=== PATIENT | female | born 1980 | race Caucasian/White ===

== ENCOUNTER 2016-06-29 05:16 | Emergency (ER) | payer OTHER ==
--- NOTE | ~2016-06-29 | CT2 ---
[facility] A Service of [facility] RADIOLOGY TEXT RESULTS PATIENT: JOSE MANUEL MAR LOCATION: [facility] : [birth year] UNIT #: [id number] AGE: [address]: Abe Moore MD SEX: F ORDER DR: [id number] [facility] [address] [place], [place] [address] [id number] MR#: [id number] Acc #: [id number] NAME: JOSE MANUEL MAR : 1980 SEX: F STUDY DATE/TIME: 06/29/2016 7:30 UNIT: [facility] ROOM: STUDY DESCRIPTION: CT Abd and Pelv W Cont Attending Physician: Abe Moore M.D. Ordering Physician: Heavenly Felton A.P.R.N. Primary Care Physician: Magui Abel Aprn MEDICAL IMAGING REPORT This report is preliminary unless electronic signature is present EXAM CT of the abdomen and pelvis with IV contrast 06/29/2016 COMPARISON 08/29/2011 HISTORY Intermittent left-sided pain for 1 month. TECHNIQUE Transaxial imaging of the abdomen and pelvis was performed with IV contrast media. This CT exam was performed with one or more of the following radiation dose reduction techniques: Automatic exposure control, adjustment of mA and/or kV according to patient size, and iterative reconstruction. FINDINGS Scans through the lung bases are unremarkable. There is hepatomegaly with diffuse hepatic steatosis. The gallbladder is absent. The spleen is not enlarged. Adrenal glands, pancreas and kidneys are normal. No dilated or thickened loops of bowel are seen. There is diverticulosis present without diverticulitis. Uterus is midline. Small follicular cysts are seen within the ovary. No adnexal masses or fluid collections are identified. Patient has degenerative disc disease throughout the lumbar spine. CONCLUSION 1. Hepatic steatosis with hepatomegaly. 2. Postop changes of prior cholecystectomy. 3. Diverticulosis without diverticulitis. 4. Multilevel degenerative disc disease. [facility] A Service of [facility] RADIOLOGY TEXT RESULTS PATIENT: JOSE MANUEL MAR LOCATION: [facility] : 78 UNIT #: [id number] AGE: [address]: Abe Moore MD SEX: F ORDER DR: Dictated by... Stephane Messina M.D. THIS IS AN ELECTRONICALLY VERIFIED REPORT Stephane Messina M.D. at 06/30/2016 3:10 PM ANNELIESE/kia TD: 06/29/2016 13:42 JOB #: [id number] MEDICAL IMAGING REPORT Page 1 of 1 COPY
[~2016-06-29 05:16] MED LIST: ACETAMINOPHEN650 M1 PO; ACETAZOLAMIDE500 M1 PO; ALBUTEROL17 GM INH; AMOXICILLIN500 M1 PO; BENZONATATE PO; DOXYCYCLIN25 MG/5 ML PO; FUROSEMIDE40 MG PO; HYDROCODONE/APA1 T15 PO; IBUPROFEN800 MG PO; LISINOPRIL-HCTZ1 T19 PO; LORTAB 5/500 TA1 TA1 PO; LORTAB ELIXIR15 ML DOB; MEDROL4 MG/DOSE- PO; MIDRIN CAPSULE1 CAP PO; MOTRIN400 MG PO; PHENERGAN PO; PHENERGAN PR; PREDNISONE PO; PREDNISONE1 MG PO; PROPRANOLOL HCL80 M1 PO; TOPAMAX PO; TYLOX 5/500 CAP1 CAP PO; VICODIN 5/1 TAB 5/50 PO; VOLTAREN50 MG PO
[2016-06-29 06:13] LABS: URINE SOURCE CLEAN CATCH
[2016-06-29 06:18] LABS: BASOPHIL# 0.1 X10e3 (0-0.3); BASOPHIL% 0.5 % (0-2.5); EOSINOPHIL# 0.4 X10e3 (0-0.7); EOSINOPHIL% 3.1 % (0.0-7.0); HEMATOCRIT 40.2 % (35.0-45.0); HEMOGLOBIN 13.2 gm/dL (12.0-16.0); LYMPHOCYTE# 3.9 X10e3 (1.0-3.5); LYMPHOCYTE% 31.4 % (17.0-45.0); MEAN CELL VOLUME 91.9 FL (83-96); MEAN CORPUSCULAR HEMOGLOBIN 30.2 PG (28-34); MEAN CORPUSCULAR HGB CONC 32.9 g/dL (30-36); MEAN PLATELET VOLUME 10.3 FL (6.5-11.5); MONOCYTE# 0.9 X10e3 (0-1.0); MONOCYTE% 7.2 % (3.0-12.0); NEUTROPHIL# 7.2 X10e3 (1.5-7.1); NEUTROPHIL% 57.8 % (40-75); PLATELET COUNT 244 X10e3 (140-420); RED BLOOD COUNT 4.37 X10e (3.90-5.30); RED CELL DISTRIBUTION WIDTH 14.1 % (11.0-15.5); WHITE BLOOD COUNT 12.4 X10e3 (4.0-10.5)
[2016-06-29 06:20] LABS: URINE APPEARANCE CLEAR; URINE BILIRUBIN NEG (NEG); URINE BLOOD 1+ (NEG); URINE COLOR YELLOW; URINE GLUCOSE NEG (NEG); URINE KETONE NEG (NEG); URINE LEUKOCYTE ESTERASE NEG (NEG); URINE NITRATE NEG (NEG); URINE PH 5.5 (5-8); URINE PROTEIN NEG (NEG); URINE SPECIFIC GRAVITY 1.031 (1.003-1.035)
[2016-06-29 06:20] LABS: DIFF IND NO
[2016-06-29 06:23] LABS: URBCS1 AUWI 0-2 /[HPF] (0-2); URINE BACTERIA AUWI NEG (NEGATIVE); URINE SQUAMOUS EPITHELIAL CELL OCC /[HPF]; UWBCS1 AUWI 0-2 (0-5)
[2016-06-29 06:27] LABS: CULTURE INDICATED? NO
[2016-06-29 06:30] LABS: AMPHETAMINE NEG (NEG); BARBITURATES NEG (NEG); BENZODIAZEPINES NEG (NEG); COCAINE NEG (NEG); MARIJUANA NEG (NEG); OPIATES NEG (NEG); TRICYCLIC ANTIDEPRESSANTS NEG (NEG); U METHADONE NEG (NEG)
[2016-06-29 06:59] LABS: ALBUMIN SERUM 3.9 g/dL (3.5-5.0); ALKALINE PHOSPHATASE 52 U/L (32-92); ALT (SGPT) 23 U/L (10-40); AMYLASE 13 U/L (0-46); AST (SGOT) 21 U/L (10-42); BILIRUBIN, DIRECT 0.1 mg/dL (0.0-0.2); BILIRUBIN,INDIRECT 0.5 mg/dL (0.0-0.9); BILIRUBIN,TOTAL 0.6 mg/dL (0.2-2.0); BLOOD UREA NITROGEN 14 mg/dL (9-23); BUN/CREATININE RATIO 23.33; CALCIUM SERUM 8.8 mg/dL (8.4-10.2); CARBON DIOXIDE 25 mmol/L (22-31); CHLORIDE 101 mmol/L (100-111); CREATININE SERUM 0.6 mg/dL (0.6-1.4); GLOM FILT RATE Estimated ABOVE60 mL/min (>60); GLUCOSE FASTING 142 mg/dL (70-110); LIPASE 16 U/L (22-51); POTASSIUM 3.5 mmol/L (3.5-5.1); PROTEIN TOTAL SERUM 7.2 g/dL (6.0-8.3); SODIUM 138 mmol/L (135-145)
[2017-01-03] MEDS ORDERED: PATIENT'S PHARMACY (12:17)
[2017-01-03] MEDS ORDERED: METFORMIN PO (12:18)
[2017-01-03] MEDS ORDERED: ALBUTEROL17 GM INH (12:18)
[2017-01-03] MEDS ORDERED: GABAPENTIN400 M2 PO (12:18)
[2017-01-03] MEDS ORDERED: PRENATAL 19 TA1 EACH PO (12:18)
[2017-01-03] MEDS ORDERED: PROTONIX PO (12:18)
[2017-01-03] MEDS ORDERED: PROVENTIL INH0.5 ML NEB (12:18)
[2017-01-03] MEDS ORDERED: LOSARTAN-HCTZ1 EAC1 PO (12:18)
[2017-01-03] MEDS ORDERED: ACETAMINOPHEN PO (12:19)
== END 2016-06-29 09:39 | disposition home or self-care (01) ==
LOC: CED 05:16
PROVIDERS: Nurse Practitioner
DX: R10.12 Left upper quadrant pain (principal); E11.9 Type 2 diabetes mellitus without complications; E78.5 Hyperlipidemia, unspecified; I10 Essential (primary) hypertension; F17.200 Nicotine dependence, unspecified, uncomplicated; Z88.8 Allergy status to other drugs, medicaments and biological substances; Z88.1 Allergy status to other antibiotic agents; Z88.5 Allergy status to narcotic agent
CPT/HCPCS: 36415; 74177; 80048; 80076; 80307; 81003; 82150; 83690; 84703; 85025; 96361; 96374; 96375; 99284; J1885; J2405; Q9967

== ENCOUNTER 2016-07-18 22:21 | Emergency (ER) | payer OTHER ==
--- NOTE | ~2016-07-18 | CR181 ---
[facility] A Service of [facility] RADIOLOGY TEXT RESULTS PATIENT: JOSE MANUEL MUIR LOCATION: [facility] : [birth year] UNIT #: [id number] AGE: [address]: Heavenly Felton APRN SEX: F ORDER DR: [id number] [facility] [address] [place], [place] [address] [id number] E MR#: [id number] Acc #: [id number] NAME: JOSE MANUEL MUIR : 1980 SEX: F STUDY DATE/TIME: 07/18/2016 UNIT: [facility] ROOM: STUDY DESCRIPTION: CR Lumbar Spine 2 or 3 Views Attending Physician: Heavenly Felton A.P.R.N. Ordering Physician: Heavenly Felton A.P.R.N. Primary Care Physician: Magui Abel Aprn MEDICAL IMAGING REPORT This report is preliminary unless electronic signature is present EXAM Lumbar spine 07/18 at 22:53 INDICATIONS Low back pain after fall on stairs this evening. FINDINGS 3 views of the lumbar spine were obtained. There is mild lumbar levoscoliosis. There is degenerative disc space narrowing and endplate osteophyte formation at L1-2 as well as at L3-4 and L4-5. Similar minimal changes are noted in L2-3. Bilateral L5-S1 facet arthropathy is present. No compression fractures. IMPRESSION Multilevel degenerative disease as above with levoscoliosis. No acute fractures. Dictated by... John Paul James Jr., M.D. THIS IS AN ELECTRONICALLY VERIFIED REPORT John Paul James Jr., M.D. at 07/20/2016 10:37 PM SANIA/[place] TD: 07/20/2016 08:41 JOB #: [id number] MEDICAL IMAGING REPORT Page 1 of 1 COPY
[2017-01-03] MEDS ORDERED: PATIENT'S PHARMACY (12:17)
[2017-01-03] MEDS ORDERED: ALBUTEROL17 GM INH (12:18)
[2017-01-03] MEDS ORDERED: LOSARTAN-HCTZ1 EAC1 PO (12:18)
[2017-01-03] MEDS ORDERED: PROVENTIL INH0.5 ML NEB (12:18)
[2017-01-03] MEDS ORDERED: PRENATAL 19 TA1 EACH PO (12:18)
[2017-01-03] MEDS ORDERED: GABAPENTIN400 M2 PO (12:18)
[2017-01-03] MEDS ORDERED: PROTONIX PO (12:18)
[2017-01-03] MEDS ORDERED: METFORMIN PO (12:18)
[2017-01-03] MEDS ORDERED: ACETAMINOPHEN PO (12:19)
== END 2016-07-18 23:38 | disposition home or self-care (01) ==
LOC: CED 22:21
DX: S39.012A Strain of muscle, fascia and tendon of lower back, initial encounter (principal); E11.9 Type 2 diabetes mellitus without complications; I10 Essential (primary) hypertension; F17.200 Nicotine dependence, unspecified, uncomplicated; Z88.8 Allergy status to other drugs, medicaments and biological substances; Z90.49 Acquired absence of other specified parts of digestive tract; X58.XXXA Exposure to other specified factors, initial encounter; Y92.89 Other specified places as the place of occurrence of the external cause
CPT/HCPCS: 72100; 84703; 96372; 99283; J1885

== ENCOUNTER 2016-11-28 00:14 | Emergency (ER) | payer OTHER ==
[~2016-11-28] VITALS: Ht 162.6 cm; Wt 124.7 kg
[2017-01-03] MEDS ORDERED: PATIENT'S PHARMACY (12:17)
[2017-01-03] MEDS ORDERED: PROVENTIL INH0.5 ML NEB (12:18)
[2017-01-03] MEDS ORDERED: ALBUTEROL17 GM INH (12:18)
[2017-01-03] MEDS ORDERED: GABAPENTIN400 M2 PO (12:18)
[2017-01-03] MEDS ORDERED: PRENATAL 19 TA1 EACH PO (12:18)
[2017-01-03] MEDS ORDERED: LOSARTAN-HCTZ1 EAC1 PO (12:18)
[2017-01-03] MEDS ORDERED: METFORMIN PO (12:18)
[2017-01-03] MEDS ORDERED: PROTONIX PO (12:18)
[2017-01-03] MEDS ORDERED: ACETAMINOPHEN PO (12:19)
[2017-01-06] MEDS ORDERED: LEVEMIR100 UNITS/ SUBQ ×2 (13:06→13:08)
[2017-01-06] MEDS ORDERED: NOVOLOG100 U/ML (13:11)
[2017-01-06] MEDS ORDERED: PREDNISONE PO (13:12)
[2017-01-06] MEDS ORDERED: DOXYCYCLINE HY100 M3 PO (13:13)
[2017-01-06] MEDS ORDERED: SYMBICORT INH (13:14)
== END 2016-11-28 01:25 | disposition left against medical advice (07) ==
LOC: CED 00:14
DX: Z53.21 Procedure and treatment not carried out due to patient leaving prior to being seen by health care provider (principal)